=== PATIENT | male | born 2000 | race Caucasian/White ===

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

== ENCOUNTER 2021-01-13 21:31 | Emergency (ER) | payer MEDICAID, SELFPAY ==
[2021-01-13 21:32] VITALS: BP 111/66; PULSE 78; RESP 20; TEMP 36.9; O2SAT 97; BMI 18.9
--- NOTE | 2021-01-13 21:34 | RAD_ITS ---
STUDY: X-RAY - LEFT RADIUS AND ULNA REASON FOR EXAM: Male, 20 years old. Fell down stairs, abrasions to posterior elbow, pain. TECHNIQUE: 2 view(s) of the forearm. COMPARISON: None. FINDINGS: There is no demonstrated soft tissue swelling. Normal visualized radius. Normal visualized ulna. There is no demonstrated acute fracture. RAD/Forearm 2 Views IMPRESSION: Normal x-ray examination of the radius and ulna. Electronically Signed: Yuriy Gipson MD at 22:42 EDT , Service support ,
--- NOTE | 2021-01-13 21:34 | RAD_ITS ---
STUDY: X-RAY - LEFT HUMERUS REASON FOR EXAM: Male, 20 years old. INJURY -- WAITING ROOM TECHNIQUE: 2 view(s) of the humerus. COMPARISON: None. FINDINGS: Normal visualized humerus. There is no demonstrated fracture or osseous destructive process. Normal visualized glenohumeral articulation. There is no demonstrated soft tissue abnormality. RAD/Humerus min 2 Views IMPRESSION: Normal x-ray examination of the humerus. Electronically Signed: Yuriy Gipson MD at 22:42 EDT , Service support ,
--- NOTE | 2021-01-13 23:22 | EX.ED.GENINJ ---
HPI History of Present Illness Chief Complaint: Fall Informant: patient and family Onset/Context/Timing Onset: Today Mechanism/Context: Fall (Fall down 10 steps) Location of pain/injuries: Left elbow and Left forearm Current Severity: Mild Maximum Severity: Moderate Narrative Narrative: Patient presents secondary to left arm injury after a fall. Patient states he was coming down some wooden steps when he slipped and fell down 10 steps. He has abrasions noted around the extensor surface of the left elbow. Family member states she also noted a red area on his posterior right ribs. Patient is right-hand dominant. He denies striking his head or loss of consciousness. He denies headache or neck pain. PFSH PFSH no medical history Home Medications naproxen [Naprosyn] 500 mg PO BID PRN #20 tab 01/13/21 [Rx Last Taken Unknown] Allergy/AdvReac Type Severity Reaction Status Date / Time No Known Allergies Allergy Verified 12/16/19 07:43 Social History Smoking Status: Never smoker ROS ROS ED Constitutional Constitutional ED: Denies chills or fever(s) Eyes Eyes: Denies change in vision ENT ENT ED: Denies sore throat Cardiovascular Cardiovascular: Denies chest pain Respiratory/Chest Respiratory/Chest: Denies cough or dyspnea Gastrointestinal Gastrointestinal: Denies abdominal pain, diarrhea, nausea or vomiting Genitourinary Genitourinary ED: Denies dysuria Musculoskeletal Musculoskeletal: Reports arthralgias; Denies back pain or neck pain Integumentary Reports Abrasions; Denies rash Neurologic Neurologic: Denies headache(s) or weakness Psychiatric Psychiatric: Denies anxiety or depression Allergic/Immunologic Allergic/Immunologic ED: Denies urticaria EXAM Physical Exam Const Vital Signs: 01/13/21 21:32 01/13/21 23:41 Temperature 98.5 F Temperature Source Temporal Pulse Rate 78 Respiratory Rate 20 H Respiratory Effort Normal Blood Pressure 111/66 Blood Pressure Mean 81 Pulse Ox 97 Oxygen Delivery Method Room Air Positive well nourished and well developed General Appearance ED: well developed HEENT Reports normocephalic and head/scalp atraumatic atraumatic Eyes PERRL and EOMs intact bilaterally Neck supple Chest Wall inspection of chest normal and palpation of chest normal Resp normal respiratory effort and clear to auscultation bilaterally Cardio regular rate and regular rhythm GI normal to inspection, nondistended, normoactive bowel sounds Palpation: soft Back/Spine no CVA tenderness Back/Spine Narrative: Slight erythema noted to the right lower lateral ribs. No bony tenderness. Extremity Extremity Narrative: Abrasions noted to the extensor surface of the left elbow. Full range of motion with minimal pain. Strong distal pulses. Strong hand grasp. Neuro oriented x3 and no sensory deficits noted Sensorium / Orientation: alert Psych mental status grossly normal Skin Skin Narrative: Abrasions as noted above. MDM MDM MDM Narrative Medical decision making narrative: Left humerus and forearm x-rays were obtained per nursing protocol. Radiography Diagnostic Testing: Radiology Impression Forearm X-Ray 01/13/21 21:34 IMPRESSION: Normal x-ray examination of the radius and ulna. Electronically Signed: Yuriy Gipson MD at 22:42 EDT , Service support , Humerus X-Ray 01/13/21 21:34 IMPRESSION: Normal x-ray examination of the humerus. Electronically Signed: Yuriy Gipson MD at 22:42 EDT , Service support , Treatment and Re-Evaluation Comments:: On my review of the x-rays no obvious fracture noted. Radiology interpretation reviewed. Test results discussed with patient and family at bedside. Wounds are cleansed and dressed. Patient is given a sling but instructed to come out of this regularly to work on range of motion. He is given naproxen here and a prescription for the same. Discharge Plan Triage Chief Complaint: Fall ED Provider: Radha Wells Dx/Rx/DC Orders Clinical Impression: Contusion of arm, left Instructions: ED Contusion, Upper Extremity Prescriptions: New naproxen [Naprosyn] 500 mg tablet 500 mg PO BID PRN (Reason: pain) Qty: 20 RF: 0 Stand Alone Forms: ED Work / School Excuse Primary Care Provider: Tomasa Monahan Referrals: Tomasa Monahan MD [Primary Care Provider] - 1 Week if not improving Disposition Disposition: Home, Self Care Discharge Date/Time: 01/13/21 23:51
[2021-01-13] MEDS: Naproxen 500 MG Tablet PO (23:40)
== END 2021-01-13 23:51 | disposition home or self-care (01) ==
LOC: ED 23:27
PROVIDERS: Emergency Provider Emergency Medicine; PCP Pediatrics
DX: S40.022A Contusion of left upper arm, initial encounter (principal); S50.312A Abrasion of left elbow, initial encounter; W10.8XXA Fall (on) (from) other stairs and steps, initial encounter; Y93.9 Activity, unspecified; Y92.9 Unspecified place or not applicable; Y99.9 Unspecified external cause status
CPT/HCPCS: 73060; 73090; 99284

== ENCOUNTER 2021-07-21 19:10 | Emergency (ER) | payer MEDICAID, SELFPAY ==
[2021-07-21 19:10] VITALS: BP 115/66; PULSE 87; RESP 16; RESP 6; TEMP 36.1; O2SAT 97; BMI 19.2
--- NOTE | 2021-07-21 21:15 | EX.ED.VIS.UR ---
HPI HPI - URI History of Present Illness Chief Complaint: Sore Throat Detail of Chief Complaint: Upper respiratory and documented temperature of 103.0 ?F Onset/Context/Timing Onset: Days (Onset 3 days ago) Context: Sudden Onset Timing: Intermittent and Waxes and wanes Quality: Fever, sore throat, congestion Location: Respiratory Worsened by: Swallowing, Eating Solids and Drinking Liquids Relieved by: Not Relieved By Tylenol and NSAIDs Associated Symptoms Associated Symptoms: Positive for Nasal Congestion, Headache, Myalgias and Nonproductive cough; Negative for Sinus Pressure, Nausea, Vomiting, Diarrhea, Shortness of Breath, Chest Pain, Hemoptysis and Productive Cough Narrative Narrative: Patient is a 21-year-old male who has a family member that ill. Family was exposed to Covid. Family member became ill 1 day prior to the onset of pills and notes. He denies headache, photophobia, neck pain or neck stiffness. He denies ear pain or decreased hearing. Does report mild upper respiratory symptoms congestion. He also complains of sore throat. He denies drooling. He has slight cough. He denies shortness of breath. He denies GI symptoms. He denies myalgias or arthralgias. He denies rash. Prior similar symptoms: No Recent Illness/Hospitalization: No ROS ROS ED Constitutional Constitutional ED: Reports chills and fever(s); Denies sweats or weight loss Eyes Eyes: Denies blurry vision, change in vision or diplopia ENT ENT ED: Reports rhinorrhea and sore throat; Denies ear pain Cardiovascular Cardiovascular: Denies chest pain, orthopnea, palpitations or paroxysmal nocturnal dyspnea Respiratory/Chest Respiratory/Chest: Reports cough; Denies dyspnea, dyspnea on exertion, orthopnea, paroxysmal nocturnal dyspnea or sputum Gastrointestinal Gastrointestinal: Denies abdominal pain, diarrhea, nausea or vomiting Genitourinary Genitourinary ED: Denies dysuria, hematuria or urinary frequency Musculoskeletal Musculoskeletal: Reports myalgias; Denies arthralgias or neck pain Neurologic Neurologic: Reports headache(s); Denies paresthesias or weakness Endocrine Endocrinology: Denies polydipsia, polyphagia or polyuria PFSH PFSH Home Medications naproxen [Naprosyn] 500 mg PO BID PRN #20 tab 01/13/21 [Rx Last Taken Unknown] Allergy/AdvReac Type Severity Reaction Status Date / Time No Known Allergies Allergy Verified 12/16/19 07:43 Social History (Updated 07/21/21 @ 21:[address] Ravindra Chapa MD) household members: family Smoking Status: Never smoker alcohol intake: never substance use type: does not use EXAM Physical Exam Const Vital Signs: 07/21/21 19:10 Temperature 97.0 F L Temperature Source Temporal Pulse Rate 87 Respiratory Rate 16 Blood Pressure 115/66 Blood Pressure Mean 82 Pulse Ox 97 Oxygen Delivery Method Room Air Positive well nourished and well developed General Appearance ED: well developed and NAD; Negative for cyanotic, diaphoretic or pallor HEENT Reports TM's clear and moist mucous membranes normocephalic and atraumatic Face and Sinus: Negative for sinus tenderness or maxillary instability External Ear: external ears normal External Auditory Canal: EAC's normal Tympanic Membrane ED: Yes TM's clear Throat: posterior oropharynx normal Eyes PERRL and EOMs intact bilaterally General Eye ED: Negative for pale conjunctiva or scleral icterus Neck no lymphadenopathy, supple and no meningeal signs Resp normal respiratory effort and clear to auscultation bilaterally Cardio S1 normal heart sound, S2 normal heart sound and no murmurs Rate: regular rate Rhythm: regular rhythm GI non-tender and non-distended Auscultation: normoactive bowel sounds Palpation: soft Extremity normal to inspection Neuro oriented x3 and CN's II-XII intact bilaterally Sensorium / Orientation: alert Skin General Skin Exam: Negative for jaundice or pallor Lesions: no lesions Rashes: no rashes MDM MDM MDM Narrative Medical decision making narrative: Patient presents with viral upper respiratory symptoms. With known exposure to Covid will do rapid Covid test. Patient was informed that his results will be transmitted to his phone. He will be discharged prior to the results being known. Discharge Plan Triage Chief Complaint: Sore Throat ED Provider: Ravindra Chapa Dx/Rx/DC Orders Clinical Impression: Encounter for screening for COVID-19, Acute upper respiratory infection Instructions: Coronavirus Disease 2019 (COVID-19): Overview, Coronavirus Disease 2019 (COVID-19): Caring for Yourself or Others Prescriptions: No Action naproxen [Naprosyn] 500 mg tablet 500 mg PO BID PRN (Reason: pain) Qty: 20 RF: 0 Primary Care Provider: Tomasa Monahan Referrals: Monahan,Tomasa, MD [Primary Care Provider] - 10-14 Days if not better Disposition Disposition: Home, Self Care
[2021-07-21 21:26] VITALS: PULSE 67; RESP 14; O2SAT 100
--- NOTE | 2021-07-21 21:26 | ED.RN ---
THIS NURSE REVIEWED D/C INSTRUCTIONS WITH PT. PT VERBALIZED UNDERSTANDING OF INSTRUCTIONS. PT DENIES FURTHER NEEDS OR QUESTIONS AT THIS TIME. PT AMBULATES FROM ROOM ON OWN WITHOUT ASSISTANCE FROM STAFF
== END 2021-07-21 21:27 | disposition home or self-care (01) ==
LOC: ED 21:24
PROVIDERS: Emergency Provider Emergency Medicine; PCP Pediatrics; Visit Provider Emergency Medicine
DX: U07.1 COVID-19 (principal)
CPT/HCPCS: 87426; 99282